=== PATIENT | female | born 1930 | race Caucasian/White ===

== ENCOUNTER 2016-09-12 16:28 | Emergency (ER) | payer OTHER ==
[2016-09-12 16:47] VITALS: PULSE 84; TEMP 98.4; BMI 22.6
--- NOTE | 2016-09-12 17:16 | PDOC ---
History of Present Illness - General History Source: Patient, Old Records Exam Limitations: No Limitations <LaurieCande - Last Filed: 09/12/16 17:41> - General History Source: Patient, Family (Daughter) Exam Limitations: No Limitations - History of Present Illness Initial Comments: 09/12/16 17:51 The patient is an 86 year old female, with a significant past medical history of hypertension, hypothyroidism and hiatal hernia, who presents to the emergency department with chest congestion in addition to a productive cough for the past 3-4 days. The patient reports that she is coughing up yellow sputum. The patient is visiting from [place] (the patient reports that she came to [place] on 08/30/2016). She reports that she is staying with her daughter and her family. The patients daughter is at the bedside. The patients daughter reports that her was recently sick with similar symptoms and was diagnosed with the flu today so the patients daughter reports that the patient has been exposed to influenza in the past couple of days. The patient denies chest pain or shortness of breath. The patient denies fever, chills, nausea, vomiting, diarrhea or abdominal pain. The patient ambulates with a cane at baseline. Allergies: None reported. Past Surgical History: None reported. Social History: Former smoker (quit approximately 47 years ago). Reports social alcohol consumption. Denies drug use. <Halle Rodríguez - Last Filed: 09/12/16 17:52> - General Chief Complaint: Respiratory Stated Complaint: COUGH FOR 3-4 DAYS Time Seen by Provider: 09/12/16 16:42 Past History - Past Medical History Cardiac Disorders: Yes (HYPERTENSION) GI Disorders: Yes (HIATAL HERNIA) Thyroid Disease: Yes Other medical history: FRACTURED SPINE A FEW YEARS AGO S/P FALL - Psycho/Social/Smoking Cessation Hx Anxiety: No Suicidal Ideation: No Smoking History: Former smoker Have you smoked in the past 12 months: No Information on smoking cessation initiated: No Hx Alcohol Use: Yes (SOCIAL) Drug/Substance Use Hx: No Substance Use Type: Alcohol <Cande Sullivan - Last Filed: 09/12/16 17:41> <Halle Rodríguez - Last Filed: 09/12/16 17:52> - Past Medical History Allergies/Adverse Reactions: Allergies Allergy/AdvReac Type Severity Reaction Status Date / Time No Known Allergies Allergy Verified 09/12/16 16:47 Home Medications: Ambulatory Orders Amlodipine Besylate 5 mg PO DAILY 09/12/16 Levothyroxine 75 mcg PO DAILY 09/12/16 Omeprazole 20 mg PO BID 09/12/16 Review of Systems - Review of Systems Able to Perform ROS?: Yes Comments:: 09/12/16 17:18 GENERAL/CONSTITUTIONAL: No fever or chills. No weakness. HEAD, EYES, EARS, NOSE AND THROAT: No change in vision. No ear pain or discharge. No sore throat. CARDIOVASCULAR: No chest pain or shortness of breath. RESPIRATORY: +Chest congestion, cough. No wheezing or hemoptysis. GASTROINTESTINAL: No nausea, vomiting, diarrhea or constipation. GENITOURINARY: No dysuria, frequency, or change in urination. MUSCULOSKELETAL: No joint or muscle swelling or pain. No neck or back pain. SKIN: No rash. NEUROLOGIC: No headache, vertigo, loss of consciousness, or change in strength/ sensation. ENDOCRINE: No increased thirst. No abnormal weight change. HEMATOLOGIC/LYMPHATIC: No anemia, easy bleeding, or history of blood clots. ALLERGIC/IMMUNOLOGIC: No hives or skin allergy. <Halle Rodríguez - Last Filed: 09/12/16 17:52> *Physical Exam - Vital Signs Last Vital Signs Temp Pulse Resp BP Pulse Ox 98.4 F 84 20 114/76 98 09/12/16 16:30 09/12/16 16:30 09/12/16 16:30 09/12/16 16:30 09/12/16 16:30 <Cande Sullivan - Last Filed: 09/12/16 17:41> - Vital Signs Last Vital Signs Temp Pulse Resp BP Pulse Ox 98.4 F 84 20 114/76 98 09/12/16 16:30 09/12/16 16:30 09/12/16 16:30 09/12/16 16:30 09/12/16 16:30 - Physical Exam Comments: 09/12/16 17:46 GENERAL: Awake, alert, and fully oriented, in no acute distress. HEAD: No signs of trauma. EYES: PERRLA, EOMI, sclera anicteric, conjunctiva clear. ENT: Dry oral mucosa. Purulent drainage in the posterior pharynx. Auricles normal inspection, hearing grossly normal, nares patent. NECK: Normal ROM, supple, no lymphadenopathy, JVD, or masses. LUNGS: Crackles and wheezes in the left lower lung field. HEART: Regular rate and rhythm, normal S1 and S2, no murmurs, rubs or gallops. ABDOMEN: Soft, nontender, normoactive bowel sounds. No guarding, no rebound. No masses. EXTREMITIES: Normal range of motion, no edema. No clubbing or cyanosis. No cords , erythema, or tenderness. NEUROLOGICAL: Cranial nerves II through XII intact. Normal speech, normal gait. SKIN: Poor skin turgor. Warm, dry, no rashes or lesions noted. <Halle Rodríguez - Last Filed: 09/12/16 17:52> ED Treatment Course - LABORATORY CBC & Chemistry Diagram: 09/12/16 17:35 09/12/16 17:35 <Halle Rodríguez - Last Filed: 09/12/16 17:52> Medical Decision Making - Medical Decision Making 09/12/16 17:41 86-year-old female with history of hypertension hypothyroid disease, hiatal hernia presents to the emergency department with 4 day history of productive cough, chest congestion and exposure to influenza at home. She is wheezing in the left lung field. Differential diagnosis includes but is not limited to: Influenza, pneumonia, URI, dehydration, electrolyte abnormality, toxic/ metabolic derangement. Plan: 1. Chest x-ray 2. DuoNeb treatment 3. Labs 4. Urine analysis 5. Observe and reevaluate <Cande Sullivan - Last Filed: 09/12/16 17:41> *DC/Admit/Observation/Transfer - Attestations Physician Attestion: 09/12/16 17:43 I, Dr. Cande Sullivan, attest that the scribes documentation that appears above has been prepared under my direction and personally reviewed by me in its entirety. I confirmed that the note above accurately reflects all work, treatment, procedures, and medical decision-making performed by me. <Cande Sullivan - Last Filed: 09/12/16 17:41> - Attestations Scribe Attestion: 09/12/16 17:18 Documentation prepared by Halle Rodríguez, acting as quality engineer medical device for Cande Sullivan MD. <Halle Rodríguez - Last Filed: 09/12/16 17:52> Diagnosis at time of Disposition: Cough - Discharge Dispostion Condition at time of disposition: Stable
[2016-09-12] MEDS ORDERED: ALBUTEROL SO4 2.5/IPRATROPIUM 0.5 INH SOL 3 ML VIAL.NEB. NEB ONE (17:17)
[2016-09-12 17:48] LABS: EOSINOPHIL 0.2 % (0-4.5); MCH 33.9 pg (25.7-33.7); MCHC 33.8 g/dl (32.0-36.0); MEAN CELL VOLUME 100.3 fl (80-96); MEAN PLT VOLUME 9.6 fl (7.5-11.1); NEUTROPHILS 76.2 % (42.8-82.8); PLATELET COUNT 142 K/MM3 (134-434); RDW 12.9 % (11.6-15.6); WHITE BLOOD COUNT 9.4 K/mm3 (4.0-10.8)
[2016-09-12 18:10] LABS: ALBUMIN 3.4 g/dl (3.5-5.0); ALK PHOS 67 U/L (32-92); ANION GAP 7 (8-16); BILIRUBIN,TOTAL 1.2 mg/dl (0.2-1.0); CALCIUM 8.1 mg/dl (8.4-10.2); CO2 26 mmol/L (22-28); CREATININE 0.7 mg/dl (0.6-1.3); GLUCOSE,RANDOM 106 mg/dl (74-106); SGOT/AST 28 U/L (10-42); SGPT/ALT 20 U/L (10-40); TOT PROT 6.5 g/dl (6.4-8.3)
[2016-09-12 18:12] LABS: CPK(DFH) 219 IU/L (26-140)
[2016-09-12 18:31] LABS: TROPONIN I (DFP) < 0.03 ng/ml (0.03-0.50)
[2016-09-12 18:34] VITALS: BP 121/63
[2016-09-12] MEDS ORDERED: AZITHROMYCIN IVPB 500 MG in DEXTROSE 5%-WATER - 250 ML IVPB ONE (19:02)
[2016-09-12] MEDS ORDERED: AZITHROMYCIN 500 MG VIAL IVPB ONE (19:09)
--- NOTE | 2016-09-12 19:15 | PDOC ---
*Physical Exam - Vital Signs Last Vital Signs Temp Pulse Resp BP Pulse Ox 98.4 F 84 20 121/63 95 09/12/16 16:30 09/12/16 18:30 09/12/16 18:30 09/12/16 18:30 09/12/16 18:30 09/12/16 19:16 Care of this patient was transferred to ca from Dr. Luna at 1900 hrs. This is an elderly 86-year-old female comes in complaining of cough and congestion. Patient had a complete workup and workup reveals no acute pathology. Patient was given IV Zithromax for her cough Patient has a normal white count and no left shift Patient's lactic acid is pending. Patient's lactic acid is negative/normal patient will be discharged home on a Z-Valentin. 09/12/16 20:12 Patient's lactic acid is negative. Patient given azithromycin here in the emergency room IV and a prescription to continue another 4 days of azithromycin was sent to her pharmacy. Patient discharged home will follow-up with her primary care doctor. We will give them this wound culture ED Treatment Course - LABORATORY CBC & Chemistry Diagram: 09/12/16 17:35 09/12/16 17:35 - ADDITIONAL ORDERS Additional order review: Laboratory Results 09/12/16 09/12/16 17:35 17:35 Sodium 134 L Potassium 3.5 Chloride 101 Carbon Dioxide 26 Anion Gap 7 L BUN 9 Creatinine 0.7 Creat Clearance w eGFR > 60 Random Glucose 106 Calcium 8.1 L Total Bilirubin 1.2 H AST 28 ALT 20 Alkaline Phosphatase 67 Creatine Kinase 219 H CK-MB (CK-2) 4.0 Troponin I < 0.03 L Total Protein 6.5 Albumin 3.4 L 09/12/16 17:35 RBC 4.26 MCV 100.3 H MCHC 33.8 RDW 12.9 MPV 9.6 Neutrophils % 76.2 Lymphocytes % 15.9 Monocytes % 6.7 Eosinophils % 0.2 Basophils % 1.0 - Medications Given in the ED: ED Medications Discontinued Medications Generic Name Dose Route Start Last Admin Trade Name Freq PRN Reason Stop Dose Admin Albuterol/Ipratropium 1 amp 09/12/16 17:17 09/12/16 18:19 Duoneb - NEB 09/12/16 17:18 1 amp ONCE ONE Administration *DC/Admit/Observation/Transfer Diagnosis at time of Disposition: Cough - Discharge Dispostion Disposition: HOME Condition at time of disposition: Stable - Patient Instructions Additional Instructions: Take azithromycin 1 tablet a day for the next 4 days. Tylenol or Motrin as needed for pain or fevers. Return to the emergency department immediately with ANY new, persistent or worsening symptoms. Continue any medications as previously prescribed by your physician. You should follow up with your primary doctor as soon as possible regarding today's emergency department visit. . Please make sure your doctor reviews the results of your emergency evaluation. Thank you for coming to the Emergency Department today for your care. It was a pleasure to see you today. Please note that your evaluation is INCOMPLETE until you follow-up with your doctor.
--- NOTE | 2016-09-13 09:02 | PDOC ---
Patient Follow-up (Call Back) - Post ED Follow - Up Condition at time of discharge: Stable Disposition at time of original discharge: HOME Reason for Call Back: Radiology (Old compression fracture of the lumbar spine) - Disposition Additional Instructions/Notes: The patient's daughter was contacted by phone at [phone]. The patient does not have a phone and she is not available at the time, but the daughter is in close contact and sees the patient daily. They are fully aware of the compression fracture of the lumbar spine. This is old, and is being treated on an ongoing basis with a back brace and analgesics. There's been no change in symptoms.
== END 2016-09-12 20:16 | disposition home or self-care (01) ==
LOC: FER 16:28
PROC: 3E0F7GC Introduction of Other Therapeutic Substance into Respiratory Tract, Via Natural or Artificial Opening (ICD-10-PCS; principal; 2016-09-12)
PROC: 3E03329 Introduction of Other Anti-infective into Peripheral Vein, Percutaneous Approach (ICD-10-PCS; 2016-09-12)
DX: R05 Cough (principal); Z87.891 Personal history of nicotine dependence; I10 Essential (primary) hypertension
CPT/HCPCS: 36415; 71020-TC; 80053; 82550; 82553; 83605; 84484; 85025; 87804; 99282-25